=== PATIENT | female | born 1965 | race Caucasian/White ===

== ENCOUNTER → 2020-03-11 | Outpatient (CLI) | payer BC ==
[~2020-03-11] MED LIST: CIPRO500 MG PO; FLAGYL500 MG PO
== END ==
LOC: KOH-I 12:42
DX: M25.561 Pain in right knee (principal); M17.11 Unilateral primary osteoarthritis, right knee; M25.461 Effusion, right knee
CPT/HCPCS: 73721

== ENCOUNTER → 2020-09-28 | Outpatient (CLI) | payer BC | LOC: KOH-I 16:22 | DX: R05 Cough (principal) | CPT/HCPCS: 71046 ==

== ENCOUNTER → 2021-01-01 | Outpatient (CLI) | payer BC | LOC: HEART 5 09:58 | DX: R06.02 Shortness of breath (principal); R05.9 Cough, unspecified; R94.2 Abnormal results of pulmonary function studies | CPT/HCPCS: 94060; 94729; 95012 ==

== ENCOUNTER → 2021-01-11 | Outpatient (CLI) | payer BC | LOC: KOH-I 08:00 | DX: J67.9 Hypersensitivity pneumonitis due to unspecified organic dust (principal) | CPT/HCPCS: 71250 ==